=== PATIENT | female | born 1975 | race Two or more races ===

== ENCOUNTER 2020-08-02 09:54 | Outpatient (CLI) | payer MEDICAID ==
--- NOTE | 2020-08-02 12:00 | Consultation ---
DATE OF CONSULTATION: 08/02/2020 CHIEF COMPLAINT: Rectal pain, rectal bleeding. HISTORY OF PRESENT ILLNESS: This is a 45-year-old female with past medical history of hypertension and diabetes complained of some rectal pain, some constipation. She thinks she is constipated and has rectal pain, bleeding all consistent with possible hemorrhoids. PAST MEDICAL HISTORY: 1. Diabetes. 2. Hypertension. PAST SURGICAL HISTORY: . MEDICATIONS: Please see medication reconciliation list. FAMILY HISTORY: No family history of GI malignancies. SOCIAL HISTORY: The patient denies any tobacco, alcohol, or IV drug abuse. ALLERGIES: No known drug allergies. REVIEW OF SYSTEMS: As dictated in HPI. PHYSICAL EXAMINATION: VITAL SIGNS: Temperature 97.2, blood pressure 150/83, respirations 20, pulse is 66. HEENT: Normocephalic and atraumatic. Sclerae anicteric. NECK: Supple. No evidence of obvious lymphadenopathy. CARDIOVASCULAR: Regular rate and rhythm. Plus S1 and S2. LUNGS: Clear to auscultation bilaterally. ABDOMEN: Positive bowel sounds. Soft and nontender. No rebound. No guarding. No peritoneal sign. EXTREMITIES: No cyanosis. No clubbing. No edema. ASSESSMENT AND PLAN: The patient is a 45-year-old female with signs and symptoms highly suspicious for hemorrhoids. No alarming symptoms including weight loss. Plan to treat constipation with combination of Colace and MiraLAX. The patient was given Anusol HC cream p.r.n. for rectal pain and bleeding. The patient was instructed to come back to the office if there is no improvement. Noble Hubbard M.D. DR: Usha JOB#: [id number] CC:
== END 2020-08-02 11:54 | disposition home or self-care (01) ==
LOC: PAN 09:54
DX: K62.89 Other specified diseases of anus and rectum (principal); K62.5 Hemorrhage of anus and rectum; E11.9 Type 2 diabetes mellitus without complications; I10 Essential (primary) hypertension; K59.00 Constipation, unspecified
CPT/HCPCS: G0463